=== PATIENT | male | born 1950 | race Two or more races ===

== ENCOUNTER 2021-10-31 16:42 | Inpatient (IN) | payer MEDICARE, OTHER ==
[~2021-10-31] VITALS: Ht 180.3 cm; Wt 86.6 kg
--- NOTE | 2021-10-31 17:01 | NUR ---
TO ER BED 16, [id number] FROM HOME WITH RIGHT LOWER LEG LAC S/P FALL FROM THE STAIRS (7 STEPS). ADMITTING HITTING BACK OF HEAD, NO LAC ON HEAD. -KO, AAOX3, BREATHING EVEN AND NON LABORED, CONNECTED TO MONITOR, AWAITING MD ORTEZ
[2021-10-31] MEDS ORDERED: LIDOCAINE 1%-EPI 1:100,000 20 ML VIAL ONE (17:49)
[2021-10-31] MEDS ORDERED: TDAP [DIPH/PERTUSSIS/TET] 0.5 ML VIAL IM ONE ×2 (18:00→18:09)
[2021-10-31] MEDS ORDERED: IV NS 0.9% 500 ML BAG IV ONE (18:00)
[2021-10-31] MEDS ORDERED: LIDOCAINE 1%-EPI 1:100,000 50 ML VIAL IJ ONE (18:00)
[2021-10-31] MEDS ORDERED: LIDOCAINE 1%-EPI 1:100,000 20 ML VIAL TP ONE (18:00)
--- NOTE | 2021-10-31 18:28 | NUR ---
covid swab done and sent to lab
[2021-10-31] MEDS ORDERED: GABA800T11 PO (18:31)
[2021-10-31] MEDS ORDERED: TAMS-12 PO (18:31)
[2021-10-31] MEDS ORDERED: UNK HTN PO (18:31)
[2021-10-31] MEDS ORDERED: ALPR2TAB7 PO (18:31)
--- NOTE | 2021-10-31 18:40 | NUR ---
X RAY TA BEDSIDE
--- NOTE | 2021-10-31 18:45 | NUR ---
TAKEN TO CT
[2021-10-31 19:18] LABS: ALANINE AMINOTRANSFERASE 20 U/L (12-78); ALBUMIN 3.6 g/dL (3.4-5.0); ALCOHOL, BLOOD < 3 mg/dL (0-0); ALKALINE PHOSPHATASE 62 U/L (46-116); ASPARTATE AMINOTRANSFERASE 31 U/L (15-37); BILIRUBIN,DIRECT 0.1 mg/dL (0.0-0.2); BILIRUBIN,TOTAL 0.4 mg/dL (0.2-1.0); CALCIUM, SERUM 9.4 mg/dL (8.5-10.1); CARBON DIOXIDE 29 mmol/L (21-32); CHLORIDE 105 mmol/L (98-107); CREATININE 0.9 mg/dL (0.6-1.3); GLUCOSE 91 mg/dL (74-106); POTASSIUM 3.4 mmol/L (3.5-5.1); SODIUM SERUM 141 mmol/L (136-145); TOTAL PROTEIN, SERUM 6.9 g/dL (6.4-8.2); UREA NITROGEN, BLOOD 21 mg/dL (7-18)
[2021-10-31 19:37] LABS: C-REACTIVE PROTEIN 0.9 mg/dL (0.0-0.9); THYROID STIMULATING HORMONE 1.851 uIU/mL (0.358-3.74)
[2021-10-31 19:56] LABS: BASOPHILS % (AUTO) 0.5 % (0.0-2.0); EOSINOPHILS % (AUTO) 1.6 % (0.0-6.0); HEMATOCRIT 36 % (39-51); HEMOGLOBIN 12.5 g/dL (13.5-17.5); LYMPHOCYTES # (AUTO) 1.5 K/uL (0.8-4.8); LYMPHOCYTES % (AUTO) 19.2 % (20.0-44.0); MEAN CORPUSCULAR HGB CONC 34 g/dl (31.0-36.0); MEAN CORPUSCULAR VOLUME 101 fL (80-96); MONOCYTES % (AUTO) 12.4 % (2.0-12.0); NEUTROPHILS # (AUTO) 5.3 K/uL (1.8-8.9); NEUTROPHILS % (AUTO) 66.3 % (43.0-81.0); PLATELET COUNT (AUTO) 282 K/uL (150-450); RED BLOOD CELL COUNT(AUTO) 3.58 MIL/uL (4.5-6.0)
--- NOTE | 2021-10-31 20:30 | NUR ---
urine collected and sent to lab
[2021-10-31 20:43] LABS: BILIRUBIN,URINE NEGATIVE (NEGATIVE); COLOR,URINE YELLOW (YELLOW); LEUKOCYTE ESTERASE ,URINE NEGATIVE (NEGATIVE); NITRITE, URINE NEGATIVE (NEGATIVE); PROTEIN,URINE NEGATIVE (NEGATIVE); UGLUCOSE NEGATIVE (NEGATIVE); UROBILINOGEN,URINE 0.2 EU/dL (0.2)
[2021-10-31 20:54] LABS: BACTERIA,URINE Many /HPF (None Seen); RBC,URINE 0-2 /HPF (0-2); SQUAMOUS EPITHELIAL CELL,UR Few /HPF (None Seen)
[2021-10-31] MEDS ORDERED: CEFTRIAXONE 1GM BAG (ER ONLY) 1 GM/50 ML PIGGYBACK IV ONE (21:30)
[2021-10-31] MEDS ORDERED: CEFTRIAXONE 1 G VIAL ONE (21:35)
[2021-10-31] MEDS ORDERED: MAGNESIUM HYDROXIDE 30 ML UDC PO PRN (22:30)
[2021-10-31] MEDS ORDERED: ACETAMINOPHEN 325 MG TABLET PO PRN (22:30)
[2021-10-31] MEDS ORDERED: TEMAZEPAM 15 MG CAPSULE PO PRN (22:30)
[2021-10-31] MEDS ORDERED: MAG HYDROX/AL HYDROX/SIMETH 30 ML UDC PO PRN (22:30)
[2021-10-31] MEDS ORDERED: ONDANSETRON HCL/PF 4 MG/2 ML VIAL IVP PRN (22:30)
[2021-10-31] MEDS ORDERED: Z GUARD REMEDY 4 OZ OINT TP PRN (22:30)
[2021-10-31] MEDS ORDERED: LORAZEPAM INJ 2 MG/ML VIAL IV PRN (22:30)
[2021-10-31] MEDS ORDERED: IV NS 0.9% 1,000 ML IV PRN (22:30)
[2021-10-31] MEDS ORDERED: HYDROCODONE/APAP 5/325MG TABLET PO PRN (22:30)
--- NOTE | 2021-10-31 22:54 | NUR ---
REPORT GIVEN TO MERISSA SAMSON
--- NOTE | 2021-10-31 23:03 | NUR ---
PATIENT IS BEING WHEELED TO RM [id number]
[2021-10-31 23:20] VITALS: BP 140/80
--- NOTE | 2021-11-01 00:30 | NUR ---
MS TAB BUILDER NOTE PATIENT ARRIVED ON UNIT, ALERT/ORIENTED X 4, PATIENT ABLE TO MAKE NEEDS KNOWN. PATIENT STABLE ON RA, NO S/S OF RESPIRATORY DISTRESS OR SOB NOTED, BREATHING EVEN AND UNLABORED. IV ACCESS ON LEFT HAND #20G INTACT AND FLUSHING WELL. PATIENT HAS LACERATION ON RIGHT LEG WITH STITCHES DONE IN ER, ALSO HAS BRUISING AND ABRASIONS ON RIGHT LOWER LEG, BILATERAL KNEES AND BILATERAL ELBOWS, WOUND PHOTOS TAKEN AND WOUND CONSULT ORDERED. PATIENT STATES HE LIVES AT HOME WITH ROOMMATE. PATIENT STATES HE TAKES BP MEDICATION AND ANXIETY MEDICATION BUT UNSURE OF THE NAME AND DOSE. PATIENT FULLY VACCINATED FOR COVID, REFUSES FLU VACCINE, OPEN TO RECEIVE PNEUMONIA VACCINE THIS ADMISSION. PATIENT REPORTS HISTORY OF ANXIETY, BIPOLAR (DOESN'T TAKE MEDS), "MINI STROKE" 3 YEARS AGO, PNEUMONIA, BRONCHITIS, HTN AND INSOMNIA WITH SURGICAL HX OF 2 HERNIA REPAIRS. PATIENT QUIT SMOKING 30 YEARS AGO, DRINKS ABOUT 1/2 PINT OF WHISKEY A DAY AND OCCASIONAL MARIJUANA USE. PATIENT WEARS GLASSES. PATIENT BELONGINGS DOCUMENTED AND SHEET PLACED IN CHART. SAFETY MEASURES IN PLACE: CALL LIGHT WITHIN REACH, SIDE RAILS UP X 2, BED LOCKED IN LOWEST POSITION, BED ALARM ON. WILL CONTINUE TO MONITOR PATIENT
[2021-11-01 06:39] LABS: BASOPHILS # (AUTO) 0.1 K/uL (0.0-0.2); BASOPHILS % (AUTO) 0.7 % (0.0-2.0); EOSINOPHILS % (AUTO) 3.2 % (0.0-6.0); HEMATOCRIT 32 % (39-51); HEMOGLOBIN 11.2 g/dL (13.5-17.5); LYMPHOCYTES # (AUTO) 1.9 K/uL (0.8-4.8); LYMPHOCYTES % (AUTO) 25.7 % (20.0-44.0); MEAN CORPUSCULAR HGB CONC 35 g/dl (31.0-36.0); MEAN CORPUSCULAR VOLUME 102 fL (80-96); MONOCYTES # (AUTO) 0.8 K/uL (0.1-1.30); MONOCYTES % (AUTO) 11.5 % (2.0-12.0); NEUTROPHILS # (AUTO) 4.3 K/uL (1.8-8.9); NEUTROPHILS % (AUTO) 58.9 % (43.0-81.0); PLATELET COUNT (AUTO) 258 K/uL (150-450); RED BLOOD CELL COUNT(AUTO) 3.19 MIL/uL (4.5-6.0); WHITE BLOOD COUNT (AUTO) 7.2 K/uL (4.3-11.0)
[2021-11-01 07:19] LABS: THYROID STIMULATING HORMONE 2.266 uIU/mL (0.358-3.74)
--- NOTE | 2021-11-01 07:25 | NUR ---
MS RN OPENING NOTES RECEIVED PATIENT IN BED AWAKE, A/O X4, PT ABLE TO MAKE NEEDS KNOWN. ON RA WITH NO S/SX OF RESP DISTRESS NOTED. NO PAIN VERBALIZED AT THIS TIME. LEFT HAND G#20 INTACT AND INFUSING NS @ 125 ML/HR. R LOWER LEG DRESSING INTACT WITH BLEEDING NOTED. ICE PACK AND REINFORCEMENT TO DRESSING DONE. DISCOLORATIONS NOTED TO BOTH KNEES AND ELBOWS. PENDING WOUND CONSULT. SAFETY MEASURES IN PLACE: CALL LIGHT WITHIN REACH, SIDE RAILS UP X2, BED LOCKED IN LOWEST POSITION, BED ALARM ON. WILL CONTINUE TO MONITOR
[2021-11-01] MEDS ORDERED: PANTOPRAZOLE 40 MG TABLET.DR PO SCH (07:30)
--- NOTE | 2021-11-01 07:35 | NUR ---
MS RN CLOSING NOTE PATIENT AWAKE IN BED, ALERT/ORIENTED X 4, PT ABLE TO MAKE NEEDS KNOWN. NO SIGNIFICANT CHANGES THROUGHOUT SHIFT, PATIENT SLEPT WELL THROUGH THE NIGHT. IV ACCESS ON LEFT HAND #20G INTACT AND INFUSING NS @ 125 ML/HR. MEDICATIONS GIVEN ORDERED, PT NEEDS MET THROUGHOUT SHIFT. SAFETY MEASURES IN PLACE: CALL LIGHT WITHIN REACH, SIDE RAILS UP X 2, BED LOCKED IN LOWEST POSITION, BED ALARM ON. ENDORSED TO DAY SHIFT NURSE FOR CONTINUITY OF CARE
[2021-11-01 07:39] LABS: CALCIUM, SERUM 8.3 mg/dL (8.5-10.1); CREATININE 0.9 mg/dL (0.6-1.3); MAGNESIUM 1.9 mg/dL (1.8-2.4); PHOSPHORUS 2.9 mg/dL (2.5-4.9); POTASSIUM 3.2 mmol/L (3.5-5.1)
[2021-11-01] MEDS ORDERED: THIAMINE HCL 100 MG TABLET PO SCH (09:00)
--- NOTE | 2021-11-01 09:48 | NUR ---
WOUND CARE CONSULT: PT PRESENTS WITH SUTURED LACERATION TO RT LOWER LEG, MULTIPLE DRY ABRASIONS AND DRY WOUNDS TO RT FOOT, PRESENT ON ADMISSION. DPM CONSULT CALLED TO DR CASTRO. PT STATES FELL ON BROKEN GLASS. RECOMMENDATIONS MADE FOR SKIN PROTECTION. DISCUSSED WITH NURSING STAFF. MD IN AGREEMENT WITH PLAN OF CARE.
[2021-11-01] MEDS ORDERED: POTASSIUM CHLORIDE 20 MEQ TAB.PRT.SR PO SCH ×2 (10:00→11:30)
--- NOTE | 2021-11-01 10:50 | NUR ---
RN NOTES PATIENT REMOVED IV ACCESS TO THE LEFT HAND. REFUSING TO HAVE AN IV REINSERTED AT THIS TIME.
--- NOTE | 2021-11-01 11:00 | NUR ---
RN NOTES PATIENT INCREASINGLY BECOMING MORE AGGRESSIVE DEMANDING TO LEAVE THE HOSPITAL. TRIED EDUCATING PATIENT ON IMPORTANCE OF ADHERING TO MEDICAL TREATMENT. PATIENT VERBALIZED, "I WILL ONLY STAY FOR A BIT LONGER". MD AND CHARGE NURSE MADE AWARE.
--- NOTE | 2021-11-01 11:49 | NUR ---
SS Note: Pt. wanted to leave AMA. SW spoke with pt. and he wants to go back home. Pt. denies suicidal and homicidal ideation. Pt. requested a TAP card, SW provided pt. with one.
--- NOTE | 2021-11-01 11:50 | NUR ---
CHIEF INTERNAL AUDITOR NOTES PATIENT SEEN BY DR WESTFALL. MEDICALLY CLEARED TO GO HOME. PATIENT IS REFUSING TO HAVE COPIES OF MEDICAL RECORDS AT THIS TIME. SIGNED DOCUMENTATION TO LEAVE AMA. NO DISCHARGE ORDERS GIVEN.
--- NOTE | 2021-11-01 12:03 | NUR ---
SW received consult for fell down stairs, laceration/glass, states multiple falls. SW attempted to meet with pt. before he left AMA, pt. was not willing to speak about his incident. NIR made an APS report for self-neglect [physical care]. APS Intake #[id number]
== END 2021-11-01 11:50 | disposition left against medical advice (07) | DRG 641 ==
LOC: ER 17:00 → MED 22:29
PROVIDERS: ADMIT Nurse Practitioner Acute Care; ATTEND Nurse Practitioner Acute Care
DX: E86.0 Dehydration (principal); M62.82 Rhabdomyolysis; E87.6 Hypokalemia; F41.9 Anxiety disorder, unspecified; Z20.822 Contact with and (suspected) exposure to COVID-19; K70.9 Alcoholic liver disease, unspecified; Z86.73 Personal history of transient ischemic attack (TIA), and cerebral infarction without residual deficits; G47.00 Insomnia, unspecified; Z87.891 Personal history of nicotine dependence; Y92.009 Unspecified place in unspecified non-institutional (private) residence as the place of occurrence of the external cause; Z79.899 Other long term (current) drug therapy; I10 Essential (primary) hypertension; S81.811A Laceration without foreign body, right lower leg, initial encounter; W22.09XA Striking against other stationary object, initial encounter; F10.10 Alcohol abuse, uncomplicated; Y90.0 Blood alcohol level of less than 20 mg/100 ml; Z91.81 History of falling; F31.9 Bipolar disorder, unspecified; K76.0 Fatty (change of) liver, not elsewhere classified; D53.9 Nutritional anemia, unspecified; R79.89 Other specified abnormal findings of blood chemistry; M50.30 Other cervical disc degeneration, unspecified cervical region; M48.02 Spinal stenosis, cervical region
CPT/HCPCS: 36415; 70450-TC; 71045-TC; 72125-TC; 73590-TC; 76700-TC; 80048-TC; 80076-TC; 81001; 82550-TC; 82553; 83605-TC; 83735-TC; 83880; 84100-TC; 84443-TC; 84484-TC; 85025-TC; 85730-TC; 86140-TC; 87040-TC; 87081-TC; 87086-TC; 87186-TC; 90715; 97116-TC; 97530-TC; A4217; A6253; A6403; C9803; G0378; G0480; J0696; J3490; J7030; J7040; J7060